=== PATIENT | male | born 1995 | race Two or more races ===

== ENCOUNTER 2024-12-24 12:24 | Emergency (ER) | payer MEDICAID, SELFPAY ==
[2024-12-24 12:26] VITALS: BMI 21.5
[2024-12-24 13:20] VITALS: BP 112/79; PULSE 79; RESP 18; TEMP 36.5; O2SAT 98
--- NOTE | 2024-12-24 13:41 | EDNOTE_ITS ---
ED Extremity Problem RME/HPI General Chief complaint: Extremity Problem,Nontraumatic Stated complaint: Foot pain x 1 day. Pt. might be pscych. Time Seen by Provider: 12/24/24 13:14 Source: patient Arrival date/time: 12/24/24 12:24 This is a 29-year-old male presents to the emergency department with complaints of bilateral foot pain. Patient reports he is homeless and ambulates through the streets complains that he has 1 blister on his right foot. He is requesting a new pair of socks and a p.o. meal before discharge. Patient denies fever, chills no signs of infection. Related Data Allergies Allergy/AdvReac Type Severity Reaction Status Date / Time No Known Allergies Allergy Verified 09/19/19 23:14 Review of Systems Review of Systems Systems Reviewed: All systems reviewed, normal except as documented Narrative Review of Systems: Gen: No fever, no chills, no weight loss EYES: No discharge, no visual changes, no pain HEENT: No ear pain, no congestion, no sore throat PULM: No shortness of breath, no cough, no congestion CV: No chest pain, no dyspnea on exertion, no palpitations GI: No nausea, no vomiting, no diarrhea, no pain, no constipation : No frequency, no urgency,? no dysuria Musc/skel: No joint pain, no back pain Skin: No rash? Psyc: No hallucinations, no depression Heme/Lymph: No easy bleeding or bruising tendencies Neuro: No weakness, no headache ED Exam Narrative Physical exam: General: Sittiing in Exam table in no acute distress, answering questions appropriately HENT: normocephalic, atraumatic, EOMI, PERRLA, moist mucous membranes Chest: chest wall is nontender Cardiac: regular rate and rhythm, normal S1 and S2, no murmurs, rubs, or gallops, capillary refill ?2 seconds Pulmonary: clear to auscultation bilaterally, no wheezing, crackles, or rhonchi Abdominal: active bowel sounds, soft, nontender, nondistended Neuro: A&OX3, CN II-XII intact, sensation grossly intact bilaterally in UE and LE. Skin: no rashes, no ecchymosis Ext: +superficial bruise and blister to feet, no sign of infection Course Quality Measures none Vital Signs Vital signs: Vital Signs Temperature 97.7 F 12/24/24 13:20 Pulse Rate 79 12/24/24 13:20 Respiratory Rate 18 12/24/24 13:20 Blood Pressure 112/79 12/24/24 13:20 Pulse Oximetry (%) 98 12/24/24 13:20 Oxygen Delivery Method Room Air 12/24/24 13:20 Extremity Problem MDM Narrative MDM Narrative:: Patient evaluated for complaints of bilateral feet pain status post walking through the city. Patient reports he has a blisters which appears superficial and not infected. Patient was given extra clothing, a pair of socks, and food prior to his discharge. Patient reports he will follow-up with his PCP or urgent care if any changes in condition. Strict ER precautions given Patient data External records reviewed:: [facility], [place] previous records Clinical information provided by:: patient Social determinants that could affect healthcare access:: none Patient has the following chronic illnesses:: none How is presenting disease/condition affected by chronic disease/condition?: no chronic disease Evaluation data The following diagnostics were reviewed and interpreted by me:: other (specify) Lab and/or radiology exams considered but not ordered:: none Interpretation Summary: none Medications / Prescriptions Medications or Prescriptions considered but not ordered:: none Medication administrations:: none Consultations Consultation(s) initiated? (list below): No Diagnosis Most likely diagnosis given after review of the tests above:: Blister on foot Admission Indicated Admission indicated?: not indicated Admission Request Was there a request for admission?: No Disposition Plan Disposition Plan: Discharge Discharge Attestation Discharge Attestation: The patient and all family members were given an opportunity to ask questions and understood the discharge instructions. Discharge instructions specifically effects, indications for sooner follow up or return to the emergency department, and the expected course of current diagnosis. Patient condition: Stable Discharge Plan Plan Patient Disposition: HOME (Self Care) Patient condition on transfer: Stable Problem List Clinical Impression: Homeless, Blister of foot Patient/Caregiver Discharge Instructions Discharge Activity: activity as tolerated Education Materials: ED Blister (Adult) Additional Instructions: You were provided with a pair of socks, and sandwich and food. Please follow-up with your primary doctor or clinic as directed. Return to the emergency department this any worsening symptoms any condition. Print Language: Ethiopian Stand Alone Forms: Janet Award Info., Patient Portal Info Letter PA/RAINA Supervising Physician HOWARD/RAINA Supervising Physician: Dr Zuniga
== END 2024-12-24 13:27 | disposition home or self-care (01) ==
LOC: SERX 14:10
PROVIDERS: Emergency Provider Emergency Medicine
DX: S90.821A Blister (nonthermal), right foot, initial encounter (principal); Z59.00 Homelessness unspecified; X58.XXXA Exposure to other specified factors, initial encounter
CPT/HCPCS: 99281

== ENCOUNTER 2025-02-05 11:24 | Emergency (ER) | payer MEDICAID, SELFPAY ==
[2025-02-05 11:33] VITALS: BP 119/82; PULSE 66; PULSE 67; RESP 16; RESP 18; TEMP 36.9; O2SAT 100; O2SAT 99; BMI 21.2
--- NOTE | 2025-02-05 11:35 | EDNOTE_ITS ---
<Statement entered by Barb Royal MD - 02/05/25 15:19> As co-signing physician, I was present and available for consult prn. I concur with the plan and care as documented by the midlevel provider. ED Psych RME/HPI General Chief Complaint: Psychiatric Symptoms Stated Complaint: PHYSCHIATRIC ISSUES Time Seen by Provider: 02/05/25 11:33 Arrival date/time: 02/05/25 11:24 RME / HPI RME / HPI Narrative: 29-year-old male patient with significant history of schizophrenia, was brought in by EMS for evaluation regarding psych issues. Apparently patient is not taking his psych medication for several days, today patient was noted to be acting off, breaking into his grandma's house, and his grandma called the medication aide and patient was brought in here for evaluation. On my evaluation patient was noted to be having bizarre thoughts, not answering appropriate questions. However patient denies any homicidal or suicidal ideation. Patient is calm and cooperative. Related Data Previous Rx's ?Medication ?Instructions ?Recorded cephalexin 500 mg capsule 500 mg PO TID 7 days #21 cap s 02/05/25 Allergies Allergy/AdvReac Type Severity Reaction Status Date / Time No Known Allergies Allergy Verified 09/19/19 23:14 Review of Systems Review of Systems Narrative Review of Systems: Review of system reviewed and within normal limits except mentioned in HPI ED Exam Narrative Physical exam: VITAL SIGNS: Reviewed. GENERAL APPEARANCE: Alert and good eye contact, does not follows commands, no acute distress, bizarre thoughts HEAD AND FACE: Non-traumatic. ENT: PERRL, pink conjunctivitis, eyelid no trauma, Mucous membrane moist. NECK: Supple, nontender, no nuchal rigidity. CHEST: No tenderness, no crepitus, no paradoxical movement, no retractions. LUNGS: Clear, well ventilated, symmetric, no rales, no wheezing, no ronchi, no stridor, good breath sounds bilaterally. HEART: Regular rate, regular rhythm, no murmur, no gallops. ABDOMEN: Soft, positive bowel sounds, nondistended, no guarding, nontender, no rebound, no masses, RECTAL: Deferred. GENITAL: Deferred. NEUROLOGICAL: Gross motor function intact sensory function intact, Appropriate for age. MUSCULOSKELETAL: low back nontender, full range of motion. EXTREMITIES: Nontender, full range of motion. SKIN: Color pink, dry, no rash, no lacerations, no abrasions, no contusions. LYMPHATICS: Deferred. Course Quality Measures none Orders Category Date Time Status Consult Bricklayer Supervisor NOW Care 02/05/25 13:02 Active XR forearm RT 2V Stat Exams 02/05/25 13:02 Taken Acetaminophen Stat Lab 02/05/25 12:00 Completed Alcohol, Blood Medical Stat Lab 02/05/25 12:00 Completed CBC Stat Lab 02/05/25 12:00 Completed CMP [Comprehensive Metabolic Panel] Stat Lab 02/05/25 12:00 Completed Drug Screen,Urine Stat Lab 02/05/25 12:35 Completed Salicylate Stat Lab 02/05/25 12:00 Completed Urinalysis Stat Lab 02/05/25 12:35 Completed cephALEXin [Keflex] Med 02/05/25 15:15 Discontinued 500 mg PO X1 ONE Vital Signs Vital signs: Vital Signs Temperature 98.4 F 02/05/25 11:33 Pulse Rate 66 02/05/25 11:33 Respiratory Rate 16 02/05/25 11:33 Blood Pressure 119/82 02/05/25 11:33 Pulse Oximetry (%) 100 02/05/25 11:33 Oxygen Delivery Method Room Air 02/05/25 11:33 Psych MDM Narrative MDM Narrative:: 29-year-old male patient with significant history of schizophrenia, was brought in by EMS for evaluation regarding psych issues. Apparently patient is not taking his psych medication for several days, today patient was noted to be acting off, breaking into his grandma's house, and his grandma called the medication aide and patient was brought in here for evaluation. On my evaluation patient was noted to be having bizarre thoughts, not answering appropriate questions. However patient denies any homicidal or suicidal ideation. Patient is calm and cooperative. Patient's workup today all came back unremarkable including negative for drug toxicity but positive for UTI. Patient was given Keflex in the emergency room Patient was referred to healthcare social worker, and was given resources by healthcare social worker and was also given bus pass. Patient data External records reviewed:: None Clinical information provided by:: patient Social determinants that could affect healthcare access:: mental health Patient has the following chronic illnesses:: Chronic schizophrenia, homelessness How is presenting disease/condition affected by chronic disease/condition?: exacerbated by Evaluation data The following diagnostics were reviewed and interpreted by me:: lab results Lab and/or radiology exams considered but not ordered:: None Interpretation Summary: See results in the MDM Medications / Prescriptions Medications or Prescriptions considered but not ordered:: Plan Medication administrations:: Medication Administration History Discontinued Medications Cephalexin HCl (Cephalexin 250 Mg Capsule) 500 mg PO X1 ONE Stop: 02/05/25 15:16 Keflex Consultations Consultation(s) initiated? (list below): No Diagnosis Psych Differential Diagnosis: acute psychosis and chronic schizophrenia Most likely diagnosis given after review of the tests above:: Chronic schizophrenia, UTI Admission Indicated Admission indicated?: not indicated Admission Request Was there a request for admission?: No Disposition Plan Disposition Plan: Discharge Discharge Attestation Discharge Attestation: The patient was given an opportunity to ask questions and understood the discharge instructions. Discharge instructions specifically effects, indications for sooner follow up or return to the emergency department, and the expected course of current diagnosis. Patient condition: Stable Discharge Plan Plan Patient Disposition: HOME (Self Care) Disposition Comment: Stable Prescriptions/Referrals Prescriptions/Med Rec: New cephalexin 500 mg capsule 500 mg PO TID 7 Days Qty: 21 0RF Referrals: No Primary/Family,Physician [Primary Care Provider] - In 1 week Problem List Clinical Impression: Chronic schizophrenia, UTI (urinary tract infection) Patient/Caregiver Discharge Instructions Discharge Activity: activity as tolerated Education Materials: ED Psychosis Additional Instructions: Thank you for the opportunity for serving you today. You are stable for discharged . You are advised to: Follow-up with your mental health MD as instructed by crisis personnel Return to ED for worsening of symptoms Increase oral fluids Print Language: Chadian Stand Alone Forms: Janet Award Info., Patient Portal Info Letter HOWARD/RAINA Supervising Physician HOWARD/RAINA Supervising Physician: Md Genny
[2025-02-05 12:16] VITALS: BP 108/73; PULSE 63; RESP 18; TEMP 36.6; O2SAT 99; BMI 19.8
[2025-02-05 12:29] LABS: Basophils % (Auto) 0 % (0-2.5); Eosinophils % (Auto) 1 % (0-10); Hematocrit 40.9 % (41.0-53.0); Hemoglobin 14.3 g/dL (13.5-16.0); Immature Granulocytes % (Auto) 0 % (0-0); Immature Granulocytes Auto 0.01 Thou/mm3 (0.00-0.00); Lymphocytes # (Auto) 1.8 Thou/mm3 (1.0-4.8); Lymphocytes % (Auto) 34 % (10-50); Mean Corpuscular Hemoglobin 29.9 pg (25.0-35.0); Mean Corpuscular Volume 86 fL (80-100); Monocytes # (Auto) 0.6 Thou/mm3 (0.0-0.8); Monocytes % (Auto) 11 % (0-12); Neutrophils # (Auto) 2.8 Thou/mm3 (1.8-7.7); Neutrophils % (Auto) 54 % (37-80); Nucleated Red Blood Cell % 0 /100 WBC (0); Platelet Count 161 Thou/mm3 (140-440); RDW Standard Deviation 39.8 fL (35.1-43.9); Red Blood Count 4.78 Miln/mm3 (4.50-5.90); White Blood Count 5.2 Thou/mm3 (3.8-10.6)
[2025-02-05 12:43] LABS: Acetaminophen < 2.0 mcg/mL (10.0-20.0); Alanine Aminotransferase 14 U/L (10-49); Albumin, Serum 4.2 gm/dL (3.5-5.0); Albumin/Globulin Ratio 1.7 (1.2-2.2); Alcohol, Blood Medical < 3.0 mg/dL (0-10.0); Alkaline Phosphatase 66 U/L (46-116); Anion Gap 6 (7-16); Aspartate Amino Transferase 22 U/L (0-34); BUN/Creatinine Ratio 13 Ratio (12-20); Bilirubin,Total 1.1 mg/dL (0.3-1.2); Blood Urea Nitrogen 13 mg/dL (9-23); Calcium 9.1 mg/dL (8.3-10.6); Calcium (Corrected) 9.1 mg/dL (8.5-10.1); Carbon Dioxide 28.2 mMol/L (20.0-31.0); Chloride 106 mMol/L (98-107); Estimated Creatinine Clearance 99.3 mL/min (>60); Globulin 2.5 gm/dL (2.3-3.5); Glucose 96 mg/dL (74-106); Osmolality,Calculated 279 (275-295); Potassium 3.9 mMol/L (3.4-5.1); Salicylate < 3.0 mg/dL; Sodium 140 mMol/L (136-145); Total Protein 6.7 gm/dL (5.7-8.2); eGFR > 60 See Note
[2025-02-05 13:01] LABS: Collection Type, Urine Clean Catch
--- NOTE | 2025-02-05 13:02 | XR_ITS ---
Examination: Forearm, right, 2 views. Technique: Forearm, AP, lateral 2 views Date and time of exam: February 05, 2025 1304 hrs. Indications: Injury to the forearm today, forearm pain. Findings: No acute fracture No dislocation No foreign body Impression: No acute fracture
--- NOTE | 2025-02-05 13:03 | PC.NURSE ---
Responded to code star(fall) in CT, per tech. patient fell out of wheelchair onto coccyx, patient denies pain to coccyx,no obvious injury to that area noted, however, abrasion noted to right forearm and patient c/o 5/10 pain to that area, Dr. Ni, admitting DrMary Responded and evaluated patient for injuries.
[2025-02-05 13:11] LABS: Bilirubin,Urine Negative (Negative); Blood,Urine Negative (Negative); Clarity,Urine Clear (Clear/Hazy); Color,Urine Yellow (Lt Yel-Yel); Glucose, Urine Negative (Negative); Ketones,Urine Negative (Negative); Leukocyte Esterase,Urine Positive (Negative); Nitrite,Urine Negative (Negative); PH,Urine 5.5 (5.0-7.0); Protein,Urine Trace (Neg - Trace); RBC,Urine 5 /hpf (0-3); Specific Gravity,Urine 1.034 (1.001-1.035); Squamous Epithelial Cell,Urine 1 /hpf (0-5); Transitional Epi Cells,Urine < 1 /hpf (0-5); Urobilinogen,Urine Negative mg/dL (0.0-1.0); WBC,Urine 13 /hpf (0-5)
[2025-02-05 13:29] LABS: Amphetamine/Methamp Scrn,U Negative (Negative); Barbiturate Screen,Urine Negative (Negative); Benzodiazepines Screen,Urine Negative (Negative); Benzoylecgonine Screen, Ur Negative (Negative); Fentanyl Screen,Urine Negative (Negative); Opiate Screen,Urine Negative (Negative); THC Screen,Urine Negative (Negative)
--- NOTE | 2025-02-05 13:50 | PC.NURSE ---
No answer when called from zhao
[2025-02-05 14:20] VITALS: BP 119/66; PULSE 60; RESP 16; TEMP 36.4; O2SAT 99
--- NOTE | 2025-02-05 14:40 | PC.CC ---
ED Public Health Technologist approached Pt and reviewed MH, medications, past/current SI/HI. Pt reported MH- Schizophrenia, denied being compliant with medication, denied past psychiatric treatment. Pt reported he woke up today and voices in head began to get worse. Pt denied connection to local MH agency and declined referral. Inspecting And Testing Lead Hand offered local community resources- Transportation, Alf, and MH. Inspecting And Testing Lead Hand provided Pt with bus passes and referral hanfout.
[2025-02-05] MEDS: cephALEXin 250 MG CAPSULE 500 MG PO (16:04)
== END 2025-02-05 16:20 | disposition home or self-care (01) ==
PROVIDERS: Nurse Practitioner Family; Emergency Provider Emergency Medicine
DX: F20.9 Schizophrenia, unspecified (principal); N39.0 Urinary tract infection, site not specified; T43.96XA Underdosing of unspecified psychotropic drug, initial encounter; Z91.148 Patient's other noncompliance with medication regimen for other reason; Z59.00 Homelessness unspecified
CPT/HCPCS: 36415; 73090; 80053; 80307; 80320; 80329; 81001; 85025; 99283; A9270; G0480

== ENCOUNTER 2025-02-05 20:17 | Emergency (ER) | payer MEDICAID, SELFPAY ==
[2025-02-05 21:17] VITALS: BP 92/65; PULSE 71; RESP 18; TEMP 36.9; O2SAT 100
--- NOTE | 2025-02-05 22:50 | PD.EDADULT ---
ED General RME/HPI General Chief complaint: General Adult/Misc Complain Stated complaint: NOT FEELING GOOD Time Seen by Provider: 02/05/25 20:24 Arrival date/time: 02/05/25 20:17 29-year-old male with a history of schizophrenia returns to the emergency department requesting food patient states that he is hungry and he would like to have a sandwich he has no other complaints. He denies suicidal or homicidal ideations Limitations: no limitations Related Data Previous Rx's ?Medication ?Instructions ?Recorded cephalexin 500 mg capsule 500 mg PO TID 7 days #21 caps 02/05/25 Allergies Allergy/AdvReac Type Severity Reaction Status Date / Time No Known Allergies Allergy Verified 09/19/19 23:14 Review of Systems Constitutional Constitutional: Denies chills and Denies fever(s) Eyes Eyes: Denies diplopia and Denies eye discharge ENT Ears, Nose, Mouth, and Throat: Denies sore throat and Denies vertigo Cardiovascular Cardiovascular: Denies chest pain and Denies dyspnea Respiratory Respiratory: Denies cough and Denies dyspnea Gastrointestinal Gastrointestinal: Denies nausea and Denies vomiting Genitourinary Genitourinary: Denies difficulty urinating and Denies flank pain Musculoskeletal Musculoskeletal: Denies arthralgias and Denies limited range of motion Integumentary/Breasts Skin/Breast: Denies rash and Denies skin pain Neurologic Neurologic: Denies seizure-like activity and Denies vertigo Psychiatric Psychiatric: Denies homicidal ideation and Denies suicidal ideation Past Medical History Past Medical History CARDIAC: Negative Congestive Heart Failure RESPIRATORY: Negative Chronic Obstructive Pulmonary Disease (COPD) GENITOURINARY: Negative Renal Disease ENDOCRINE: Negative Diabetes Mellitus Type 1 or Diabetes Mellitus Type 2 Social History SMOKING STATUS: Unknown if ever smoked ED Exam General Limitations: Present no limitations General appearance: Present alert and in no apparent distress Head Head exam: Present atraumatic Eye Eye exam: Present normal appearance, PERRL and EOMI ENT ENT exam: Present normal exam, normal oropharynx and mucous membranes moist Neck Neck exam: Present normal inspection, full ROM and trachea midline Chest Chest inspection: Present normal inspection and symmetric chest wall rise Respiratory Respiratory exam: Present normal lung sounds bilaterally Cardiovascular Cardiovascular exam: Present regular rate, normal rhythm and normal heart sounds Abdominal Exam Abdominal exam: Present soft and normal bowel sounds Extremities Exam Extremities exam: Present normal inspection and full ROM Back Exam Back exam: Present normal inspection and full ROM Neurological Exam Neurological exam: Present alert, oriented X3 and CN II-XII intact Psychiatric Psychiatric exam: Present normal affect and normal mood Skin Skin exam: Present warm, dry, intact and normal color Course Course Course Narrative: 29-year-old male with a history of schizophrenia reports stating that he is hungry. Patient was seen earlier today and treated for urinary tract infection and he states that he is feeling well he denies any suicidal homicidal ideations and does not appear to be a threat to himself or others therefore he will be discharged as he was given a sandwich and chips and water as he requested he appears to be satisfied and in no distress Quality Measures none Vital Signs Vital signs: Vital Signs Temperature 98.5 F 02/05/25 21:17 Pulse Rate 71 02/05/25 21:17 Respiratory Rate 18 02/05/25 21:17 Blood Pressure 92/65 02/05/25 21:17 Pulse Oximetry (%) 100 02/05/25 21:17 Oxygen Delivery Method Room Air 02/05/25 21:17 [facility] Patient data External records reviewed:: None Clinical information provided by:: patient Social determinants that could affect healthcare access:: mental health Patient has the following chronic illnesses:: Schizophrenia How is presenting disease/condition affected by chronic disease/condition?: caused by Evaluation data The following diagnostics were reviewed and interpreted by me:: other (specify) (None) Lab and/or radiology exams considered but not ordered:: None Interpretation Summary: N/A Medications Medications considered but not ordered:: None Medication administrations:: None Consultations Consultation(s) initiated? (list below): No Diagnosis Differential Diagnosis ED Complaint MDM: Schizophrenia, depression, manic disorder Most likely diagnosis given after review of the tests above:: Schizophrenia Admission Indicated Admission indicated?: not indicated Explain why admission is indicated or not indicated:: Mild Admission Request Was there a request for admission?: No Disposition Plan Disposition Plan: Discharge Discharge Attestation Discharge Attestation: The patient and all family members were given an opportunity to ask questions and understood the discharge instructions. Discharge instructions specifically effects, indications for sooner follow up or return to the emergency department, and the expected course of current diagnosis. Patient condition: Stable Medical Decision Making Differential Diagnosis Differential Diagnosis: Schizophrenia, depression, manic disorder Discharge Plan Plan Patient Disposition: HOME (Self Care) Prescriptions/Referrals Prescriptions/Med Rec: No Action cephalexin 500 mg capsule 500 mg PO TID 7 Days Qty: 21 0RF Problem List Clinical Impression: Chronic schizophrenia Patient/Caregiver Discharge Instructions Discharge Activity: activity as tolerated Education Materials: ED Schizophrenia, General Additional Instructions: Follow-up with your psychiatrist and your primary care provider Print Language: Guyanese Stand Alone Forms: Janet Award Info., Patient Portal Info Letter
[2025-02-05 23:04] VITALS: RESP 16
== END 2025-02-05 23:04 | disposition home or self-care (01) ==
PROVIDERS: Emergency Provider Emergency Medicine
DX: F20.9 Schizophrenia, unspecified (principal)
CPT/HCPCS: 99281

== ENCOUNTER 2025-02-14 10:38 | Emergency (ER) | payer MEDICAID, SELFPAY ==
[2025-02-14 10:41] VITALS: BP 118/74; PULSE 59; RESP 17; TEMP 36.8; O2SAT 100
[2025-02-14 10:45] VITALS: PULSE 52; RESP 16; O2SAT 98; BMI 20.9
--- NOTE | 2025-02-14 11:47 | PC.NURSE ---
pt soren becerra from [facility] for hold, per ems pt denied SI OR HI, i could not complete [place] scale as pt would not answer questions. in asking pt questions he would not speak or would speak to self he stated that he does hear and see things but would not further describe.
[2025-02-14 12:07] LABS: Alcohol, Urine Negative (Negative); Amphetamine/Methamp Scrn,U Negative (Negative); Barbiturate Screen,Urine Negative (Negative); Benzodiazepines Screen,Urine Negative (Negative); Benzoylecgonine Screen, Ur Negative (Negative); Fentanyl Screen,Urine Negative (Negative); Opiate Screen,Urine Negative (Negative); THC Screen,Urine Negative (Negative)
--- NOTE | 2025-02-14 12:20 | PD.EDPSYCH ---
ED Psych RME/HPI General Chief Complaint: Psychiatric Symptoms Stated Complaint: MENTAL EVAL Time Seen by Provider: 02/14/25 11:32 Arrival date/time: 02/14/25 10:38 RME / HPI RME / HPI Narrative: 29 year old male presents to the ED BIBA on a 5150 hold today. Per medics, patient was placed on a 5150 hold by clinician at [facility] for gravely disabled. Evidently staff there were unable to safety plan with the patient as he was refusing to talk. While in the ED patient reports no complaints and is requesting food and something to drink. Related Data Allergies Allergy/AdvReac Type Severity Reaction Status Date / Time No Known Allergies Allergy Verified 09/19/19 23:14 Review of Systems Review of Systems Narrative Review of Systems: Gen: No fever, no chills, no weight loss EYES: No discharge, no visual changes, no pain HEENT: No ear pain, no congestion, no sore throat PULM: No shortness of breath, no cough, no congestion CV: No chest pain, no dyspnea on exertion, no palpitations GI: No nausea, no vomiting, no diarrhea, no pain, no constipation : No frequency, no urgency,? no dysuria Musc/skel: No joint pain, no back pain Skin: No rash. Psyc: No hallucinations, no depression, +placed on a 5150 hold per clinician at [facility] Heme/Lymph: No easy bleeding or bruising tendencies Neuro: No weakness, no headache Past Medical History Past Medical History CARDIAC: Negative Congestive Heart Failure RESPIRATORY: Negative Chronic Obstructive Pulmonary Disease (COPD) GENITOURINARY: Negative Renal Disease ENDOCRINE: Negative Diabetes Mellitus Type 1 or Diabetes Mellitus Type 2 Social History SMOKING STATUS: Unknown if ever smoked ED Exam Narrative Physical exam: GENERAL: In general the patient is awake, interactive, in an emergency department gurney.? HEAD/EYES/EARS/NOSE/THROAT: normo-cephalic, atraumatic, mucus membranes are moist.? No cervical tenderness palpation midline.? Supple neck. CARDIOVASCULAR: regular rate and regular rhythm, no murmurs, heart sounds are not distant, strong pulses in all four extremities that are equal and symmetric bilateral upper and lower extremities, normal capillary refill. CHEST/PULMONARY: normal chest rise and fall, good air movement, clear to auscultation bilaterally, normal inspiratory to expiratory ratios without evidence of respiratory distress. ABDOMEN: soft, not tender, no masses appreciated BACK: normal range of motion without pain. NEUROLOGICAL: cranio-facial features are symmetric, moves all four extremities equally without obvious limitations or weakness. EXTREMITY: no tenderness to palpation over the long bones or large joints of the bilateral upper and lower extremities, no joint swelling, no joint erythema, no signs of trauma, no unilateral leg swelling and no peripheral edema. SKIN: warm, dry, well-perfused, no jaundice, no rash, no telangiectasias or petechia. PSYCH: calm, cooperative, no evidence of psychosis or agitation Course Quality Measures none Orders Category Date Time Status Diet Regular Diet 02/14/25 Lunch Active Alcohol, Urine Stat Lab 02/14/25 11:40 Completed Drug Screen,Urine Stat Lab 02/14/25 11:40 Completed Reevaluation(s) Reevaluation #1: Patient resting comfortably and is cooperative. Patient is medically cleared at this time. Time: 12:15 Vital Signs Vital signs: Vital Signs Temperature 98.2 F 02/14/25 10:41 Pulse Rate 59 L 02/14/25 10:41 Respiratory Rate 17 02/14/25 10:41 Blood Pressure 118/74 02/14/25 10:41 Pulse Oximetry (%) 100 02/14/25 10:41 Oxygen Delivery Method Room Air 02/14/25 10:41 Pulse ox is 100% on room air which is adequate. Psych MDM Narrative MDM Narrative:: Arlen Stewart, am scribing for and in the presence of Dr. Gonzales. 1623: Patient has been evaluated by mental health and have rescinded the 5150 hold. State they have connected the patient with [facility] services and provided food/intermediate services. dietary services manager will set up transportation to the rescue mission. Patient data External records reviewed:: [facility] previous records (I reviewed ED visit on 02/05/2025) Clinical information provided by:: patient and EMS Social determinants that could affect healthcare access:: mental health Patient has the following chronic illnesses:: Schizophrenia How is presenting disease/condition affected by chronic disease/condition?: exacerbated by Evaluation data The following diagnostics were reviewed and interpreted by me:: lab results Lab and/or radiology exams considered but not ordered:: None Interpretation Summary: Urine toxicology negative Medications / Prescriptions Medications or Prescriptions considered but not ordered:: None Medication administrations:: none Consultations Consultation(s) initiated? (list below): No Diagnosis Psych Differential Diagnosis: acute psychosis, chronic schizophrenia, bipolar disorder, drug-induced psychotic disorder and acute anxiety Most likely diagnosis given after review of the tests above:: Schizophrenia Homelessness Admission Indicated Admission indicated?: not indicated Admission Request Was there a request for admission?: No Disposition Plan Disposition Plan: Discharge Discharge Attestation Discharge Attestation: The patient and all family members were given an opportunity to ask questions and understood the discharge instructions. Discharge instructions specifically effects, indications for sooner follow up or return to the emergency department, and the expected course of current diagnosis. Patient condition: Stable Discharge Plan Plan Patient Disposition: HOME (Self Care) Patient condition on transfer: Stable Prescriptions/Referrals Referrals: No Primary/Family,Physician [Primary Care Provider] - In 1 week Problem List Clinical Impression: Chronic schizophrenia, Homeless Patient/Caregiver Discharge Instructions Education Materials: Journaling for Mental Health Additional Instructions: Today you were seen by the mental health specialist who feels that you can be discharged. We will provide you with a ride to the homeless intermediate. Please return to the emergency department for worsening symptoms, you want hurt yourself or hurt anybody else, or any other concerns Print Language: South Sudanese Stand Alone Forms: Janet Award Info., Patient Portal Info Letter
--- NOTE | 2025-02-14 12:41 | PC.NURSE ---
cleared by Dr. Whitehead for group social worker to see. pt given food to eat earlier
[2025-02-14 15:35] VITALS: BP 118/69; PULSE 67; RESP 17; TEMP 36.8; O2SAT 97
--- NOTE | 2025-02-14 16:15 | PC.CC ---
Pt Jeffrey Wong, is a 29-year-old male brought in to ED by family member for abdominal pain. Automation/Controls Manager met with pt to complete psychological assessment. Pt easily engaged and able to sit up on gurney and make direct eye contact as encounter progressed. Pt is noted to be alert and oriented to person, current place and year. Pt reports no hx of mental health or MH medications. Pt denies previous 5150 holds. Pt placed in ED 15. Pt reports is transient in [facility]. ED Bumper And Painter encountered Pt for mental health evaluation. ED Bumper And Painter used the following interventions: empathy, unconditional positive regard, Socratic dialogue including clarifying and probing questions. Pt was receptive and was able to disclosed is transient and is wanting food. ED Bumper And Painter used C-SSRS to support process and assessed for SI/HI, self-harming behaviors, method, access to lethal means, plan/intent. Pt was responsive to mental health evaluation and denied plan/intent for SI/HI. Pt denied hx of non-suicidal self-injury. ED Bumper And Painter consulted with relay shop supervisor Nahomi Brannon and it was agreed to safety plan with client due to client denying SI/HI with no plan/intent. Pt was engaged and assessed as reliable in participation in safety planning and was in agreement. Automation/Controls Manager will give Pt resources regarding shelters/food [place] and will connect to MH via [facility]. Referral was sent out.
--- NOTE | 2025-02-14 16:27 | PC.CC ---
Salvage Repairer reviewed local shelters with Pt. Pt will like transportation to [facility] [place] [address] , [place] [address]. Salvage Repairer will arrange transport when Pt is ready to discharge.
--- NOTE | 2025-02-14 16:48 | PC.CC ---
arranged transport to [facility] [place] via [employer]- ETA 6 minutes
== END 2025-02-14 17:27 | disposition home or self-care (01) ==
PROVIDERS: Emergency Provider Emergency Medicine
DX: Z04.6 Encounter for general psychiatric examination, requested by authority (principal); F20.9 Schizophrenia, unspecified; Z59.00 Homelessness unspecified
CPT/HCPCS: 80307; 80320; 90839; 99284; G0480

== ENCOUNTER 2025-05-28 15:01 | Emergency (ER) | payer MEDICAID, SELFPAY ==
[2025-05-28] VITALS (8 sets, daily range): BP systolic 106–127; BP diastolic 50–75; PULSE 38–55; RESP 15–16; TEMP 36.4–36.6; O2SAT 96–100; BMI 19.5
--- NOTE | 2025-05-28 15:13 | PC.CC ---
Patient was BIBA from [facility] on a 5150-Hold for Gravely Disabled. It was reported on the hold that patient has a history of Schizophrenia but is not compliant with outpatient mental health services and medication. Patient will have a mental health evaluation upon being medically cleared.
--- NOTE | 2025-05-28 15:27 | EDNOTE_ITS ---
<Statement entered by Barb Royal MD - 05/29/25 04:32> As co-signing physician, I was present and available for consult prn. I concur with the plan and care as documented by the midlevel provider. ED Psych RME/HPI General Chief Complaint: Psychiatric Symptoms Stated Complaint: MENTAL EVALUATION Time Seen by Provider: 05/28/25 15:24 Arrival date/time: 05/28/25 15:01 RME / HPI RME / HPI Narrative: 29-year-old male patient was sent to us from the care home for 5150 hold. Apparently patient was incarcerated today and while in the care home patient is refusing to take his psych medication, and becoming more psychotic, talking to himself not responding to questions, with flight of ideas. Patient is not violent. Denies any homicidal or suicidal ideation Related Data Allergies Allergy/AdvReac Type Severity Reaction Status Date / Time No Known Allergies Allergy Verified 09/19/19 23:14 Review of Systems Review of Systems ROS Unobtainable: unobtainable due to medical condition ED Exam Narrative Physical exam: VITAL SIGNS: Reviewed. GENERAL APPEARANCE: Alert and good eye contact, does not follows commands, no acute distress, HEAD AND FACE: Non-traumatic. ENT: PERRL, pink conjunctivitis, eyelid no trauma, Mucous membrane moist. NECK: Supple, nontender, no nuchal rigidity. CHEST: No tenderness, no crepitus, no paradoxical movement, no retractions. LUNGS: Clear, well ventilated, symmetric, no rales, no wheezing, no ronchi, no stridor, good breath sounds bilaterally. HEART: Regular rate, regular rhythm, no murmur, no gallops. ABDOMEN: Soft, positive bowel sounds, nondistended, no guarding, nontender, no rebound, no masses, RECTAL: Deferred. GENITAL: Deferred. NEUROLOGICAL: Gross motor function intact sensory function intact, Appropriate for age. MUSCULOSKELETAL: low back nontender, full range of motion. EXTREMITIES: Nontender, full range of motion. SKIN: Color pink, dry, no rash, no lacerations, no abrasions, no contusions. LYMPHATICS: Deferred. Course Quality Measures none Orders Category Date Time Status EKG (ED ONLY) *Do not use* NOW Care 05/28/25 18:07 Completed EKG (ED Only) Stat Exams 05/28/25 18:07 Draft Alcohol, Blood Medical Stat Lab 05/28/25 15:36 Completed CBC [CBC] Stat Lab 05/28/25 15:36 Completed CMP [Comprehensive Metabolic Panel] Stat Lab 05/28/25 15:36 Completed Drug Screen,Urine Stat Lab 05/28/25 17:24 Completed UA, C/S IF [Urinalysis, C/S if Indicated] Stat Lab 05/28/25 17:24 Completed Vital Signs Vital signs: Vital Signs Temperature 97.6 F 05/28/25 15:02 Pulse Rate 45 L 05/28/25 15:02 Respiratory Rate 16 05/28/25 15:02 Blood Pressure 110/70 05/28/25 15:02 Pulse Oximetry (%) 98 05/28/25 15:02 Oxygen Delivery Method Room Air 05/28/25 15:02 Psych MDM Narrative MDM Narrative:: 29-year-old male patient was sent to us from the care home for 5150 hold. Apparently patient was incarcerated today and while in the care home patient is refusing to take his psych medication, and becoming more psychotic, talking to himself not responding to questions, with flight of ideas. Patient is not violent. Denies any homicidal or suicidal ideation Patient's workup today all came back unremarkable. Tested negative for drug toxicity. Patient EKG showed sinus bradycardia, ventricular rate of 37 bpm, no ST segment elevation depression noted. Patient is medically cleared for crisis intervention Care transferred to Dr. Royal at 11 PM for final disposition Patient data External records reviewed:: None Clinical information provided by:: patient Social determinants that could affect healthcare access:: mental health Patient has the following chronic illnesses:: Chronic schizophrenia, How is presenting disease/condition affected by chronic disease/condition?: exacerbated by Evaluation data The following diagnostics were reviewed and interpreted by me:: lab results Lab and/or radiology exams considered but not ordered:: None Interpretation Summary: See results in MDM Medications / Prescriptions Medications or Prescriptions considered but not ordered:: None Medication administrations:: None Consultations Consultation(s) initiated? (list below): No Diagnosis Psych Differential Diagnosis: acute psychosis, chronic schizophrenia and acute anxiety Most likely diagnosis given after review of the tests above:: Acute psychosis, history of chronic schizophrenia Admission Indicated Admission indicated?: indicated Admission Request Was there a request for admission?: No Disposition Plan Disposition Plan: other (specify) Discharge Plan Prescriptions/Referrals Referrals: No Primary/Family,Physician [Primary Care Provider] - In 1 week Problem List Clinical Impression: Acute psychosis, Chronic schizophrenia, Poor compliance with medication Patient/Caregiver Discharge Instructions Print Language: Chinese
[2025-05-28 16:10] LABS: Basophils % (Auto) 1 % (0-2.5); Eosinophils % (Auto) 1 % (0-10); Hematocrit 39.9 % (41.0-53.0); Hemoglobin 14.1 g/dL (13.5-16.0); Immature Granulocytes % (Auto) 0 % (0-0); Immature Granulocytes Auto 0.01 Thou/mm3 (0.00-0.00); Lymphocytes # (Auto) 1.1 Thou/mm3 (1.0-4.8); Lymphocytes % (Auto) 25 % (10-50); Mean Corpuscular HGB Conc 35.3 g/dl (31.0-37.0); Mean Corpuscular Hemoglobin 29.9 pg (25.0-35.0); Mean Corpuscular Volume 85 fL (80-100); Monocytes # (Auto) 0.4 Thou/mm3 (0.0-0.8); Monocytes % (Auto) 9 % (0-12); Neutrophils # (Auto) 2.8 Thou/mm3 (1.8-7.7); Neutrophils % (Auto) 64 % (37-80); Nucleated Red Blood Cell % 0 /100 WBC (0); Platelet Count 134 Thou/mm3 (140-440); RDW Standard Deviation 39.9 fL (35.1-43.9); Red Blood Count 4.71 Miln/mm3 (4.50-5.90); White Blood Count 4.3 Thou/mm3 (3.8-10.6)
--- NOTE | 2025-05-28 16:10 | PC.NURSE ---
Patient to er via ems from [facility] on 72hr hold for being gravely disabled, patient has h/o pschizophrenia, patient rambling, has disorganized speech. Patient denies pain. When asking patient if he wants to hurt someone, patient laughs and says yes however, will not elaborate as to why or who he wants to harm. Patient denies SI. Patient has bizarre behavior, looking around room, pointing at ceiling. Patient answering some questions appropriately however, rambles intermittently. When asking patient why he was in [facility] and why he was brought to the ER, patient states they were using it as a multipurpose building Provider, Batool FLORES evaluated patient and is aware HR 44, Sinus bradycardia on the monitor, no new orders received at this time.
[2025-05-28 16:34] LABS: Alanine Aminotransferase 14 U/L (10-49); Albumin, Serum 4.5 gm/dL (3.5-5.0); Albumin/Globulin Ratio 1.8 (1.2-2.2); Alcohol, Blood Medical < 3.0 mg/dL (0-10.0); Alkaline Phosphatase 53 U/L (46-116); Anion Gap 7 (7-16); Aspartate Amino Transferase 27 U/L (0-34); BUN/Creatinine Ratio 10 Ratio (12-20); Bilirubin,Total 1.2 mg/dL (0.3-1.2); Blood Urea Nitrogen 10 mg/dL (9-23); Carbon Dioxide 29.1 mMol/L (20.0-31.0); Chloride 104 mMol/L (98-107); Estimated Creatinine Clearance 97.9 mL/min (>60); Globulin 2.5 gm/dL (2.3-3.5); Glucose 93 mg/dL (74-106); Osmolality,Calculated 278 (275-295); Potassium 4.3 mMol/L (3.4-5.1); Sodium 140 mMol/L (136-145); eGFR > 60 See Note
[2025-05-28 17:28] LABS: Collection Type, Urine Clean Catch
[2025-05-28 17:49] LABS: Bilirubin,Urine Negative (Negative); Blood,Urine Negative (Negative); Clarity,Urine Clear (Clear/Hazy); Color,Urine Yellow (Lt Yel-Yel); Culture Indicated,Urine Not Indicated; Glucose, Urine Negative (Negative); Ketones,Urine Trace (Negative); Leukocyte Esterase,Urine Negative (Negative); Nitrite,Urine Negative (Negative); PH,Urine 6.5 (5.0-7.0); Protein,Urine Negative (Neg - Trace); RBC,Urine 4 /hpf (0-3); Specific Gravity,Urine 1.025 (1.001-1.035); Squamous Epithelial Cell,Urine < 1 /hpf (0-5); Urobilinogen,Urine Negative mg/dL (0.0-1.0); WBC,Urine 1 /hpf (0-5)
[2025-05-28 17:54] LABS: Amphetamine/Methamp Scrn,U Negative (Negative); Barbiturate Screen,Urine Negative (Negative); Benzodiazepines Screen,Urine Negative (Negative); Benzoylecgonine Screen, Ur Negative (Negative); Fentanyl Screen,Urine Negative (Negative); Opiate Screen,Urine Negative (Negative); THC Screen,Urine Negative (Negative)
--- NOTE | 2025-05-28 18:07 | EKG_ITS ---
[facility] Test Date: 2025-05-28 Pat Name: YEYO LAL Department: Room: - Gender: Male Stadium Manager: : 1995 Requested By: Prateek Renae Order Number: [id number] Reading MD: Prateek Renae Measurements Intervals Boyce Rate: 37 P: 60 VT: 165 QRS: 96 QRSD: 95 T: 70 QT: 480 QTc: 381 Interpretive Statements SINUS BRADYCARDIA BORDERLINE RIGHT AXIS DEVIATION [QRS AXIS > 90] CRITICAL TEST RESULT No previous ECG available for comparison /[id number]/S0/[id number].pdf
--- NOTE | 2025-05-28 18:07 | PC.NURSE ---
Patients HR 37 at this time, Batool OYSTER GRADER made aware, new orders received for EKG.
--- NOTE | 2025-05-28 23:30 | PD.EDADDENDU ---
Emergency Room Addendum Addendum Narrative: 2300: Care assumed from Prateek Renae NP (emergency provider). Past medical, surgical, social and family history reviewed. Vitals and home medications reviewed. Results and treatment plan discussed. They will assume the care of the patient at this time and will follow the patient, pending psych evaluation. Please refer to the emergency department record for history and examination. Patient was placed in observation for treatment and monitoring of psychiatric symptoms. Symptoms consist of progressing schizophrenia. Treatment plan includes psychiatric consult, reassessments, and possible placement into psychiatric facility. The patient had access and provided personal hygiene, shower, food, water, and daily medications. 0600: Pending psych evaluation in the morning. Signed-out to oncoming ED physician.
[2025-05-29] VITALS (9 sets, daily range): BP systolic 93–114; BP diastolic 46–71; PULSE 44–65; RESP 16–18; TEMP 36.6–36.8; O2SAT 99–100
--- NOTE | 2025-05-29 06:56 | PD.EDADDENDU ---
Emergency Room Addendum Addendum Narrative: 0600: Care assumed from Dr. Royal, the previous shift emergency physician. Past medical, surgical, social and family history reviewed. Vitals and home medications reviewed. I will assume the care of the patient at this time, pending mental health evaluation. The patient had been medically cleared by previous physician. The patient was placed in ED observation care at 0600 05/29/2025. While in ED observation the pt will have access to water, food, and personal hygiene. If the pt takes home medication(s), they will be continued in ED observation. Please refer to the emergency department record for history and examination from initial visit.?The following addendum documentation note is intended to reflect any pending information, findings, or radiology results not included in the patient?s initial chart. Notified by ED care director rn that the 5150 hold was upheld and are pending LPS facility placement. Patient has been accepted by Dr. Michele at [facility]. 1410: EMS here to transfer the patient. Patient has remained stable through ED course and was transferred in stable condition.
--- NOTE | 2025-05-29 12:31 | PC.NURSE ---
Accepted by Dr Guerra at [address] [place] [address] Direct Admit to [facility] PH: [phone] Ext. [phone]
--- NOTE | 2025-05-29 13:07 | PC.CC ---
Lawn Technician received phone call from [facility] - requesting nurse report. Lawn Technician received confirmation from attending nurse Antoine - Pt accepted to [facility]- Dr. Guerra - Barney Tolentino.
--- NOTE | 2025-05-29 13:09 | PC.CC ---
Dock Coordinator coordinated transportation with [facility] - Transport ETA pending
--- NOTE | 2025-05-29 13:56 | PC.CC ---
Director Of Event Marketing received transport ETA with [facility] for 1600
== END 2025-05-29 14:15 ==
LOC: SERX 17:11
PROVIDERS: Nurse Practitioner Family; Emergency Provider Emergency Medicine
DX: F20.89 Other schizophrenia (principal); F20.9 Schizophrenia, unspecified; Z91.148 Patient's other noncompliance with medication regimen for other reason
CPT/HCPCS: 36415; 80053; 80307; 80320; 81001; 85025; 93005; 96127; 99285; G0480